=== PATIENT | female | born 1970 | race African-American/Black ===

== ENCOUNTER 2018-04-26 22:12 | Emergency (ER) | payer MEDICAID ==
[~2018-04-26] VITALS: Ht 170.2 cm; Wt 63.5 kg
[~2018-04-26 22:12] MED LIST: ATEN-60; FERR324T11
[2018-04-26 22:59] LABS: Basophils # (auto) 0 uL; Eosinophils # (auto) 0.2 uL; Lymphocytes # (auto) 2.3 uL; Monocytes # (auto) 0.5 uL; Nucleated Red Blood Cells % 0.1 %
[2018-04-26 23:00] LABS: Basophils % (auto) 0.6 % (0.0-2.0); Eosinophils % (auto) 2.7 % (0.0-7.0); Hemoglobin 10.8 g/dL (12.2-16.2); Mean Corpuscular Hemoglobin 24.1 pg (28.0-32.0); Mean Corpuscular Hgb Conc. 31.7 g/dL (32.0-36.0); Mean Corpuscular Volume 76.2 fL (80.0-100.0); Monocytes % (auto) 5.4 % (0.0-12.0); Neutrophils # (auto) 5.3 uL; Neutrophils % (auto) 63.3 % (37.0-80.0); Red Blood Cells 4.47 10^6/uL (4.0-5.20); White Blood Cell 8.3 10^3/uL (4.4-10.8)
[2018-04-26 23:17] LABS: Alanine Aminotransferase 14 U/L (13-56); Albumin 4.2 g/dL (3.4-5.0); Anion Gap 11 (5-15); Aspartate Aminotransferase 10 U/L (15-37); BUN/Creatinine Ratio 14.3; Blood Urea Nitrogen 11 mg/dL (7-18); Calcium 8.3 mg/dL (8.5-10.1); Carbon Dioxide 21 mmol/L (21-32); Chloride 106 mmol/L (98-107); GFR African American > 60 mL/min; GFR Non-African American > 60 mL/min; Glucose 88 mg/dL (74-106); Potassium 3.3 mmol/L (3.5-5.1); Sodium 138 mmol/L (136-145)
[2018-04-26 23:21] LABS: Alkaline Phosphatase 63 U/L (45-117); Bilirubin, Total 0.8 mg/dL (0.2-1.0); Total Protein 8.8 g/dL (6.4-8.2)
[2018-04-27] LABS: Platelet Count (auto) 203 10^3/uL (140-450)
[2018-04-27 07:26] VITALS: BP 114/70
[2018-04-27] MEDS ORDERED: POTASSIUM EFFERVESENT TAB 25 MEQ PO ONE (07:30)
== END 2018-04-27 08:09 | disposition home or self-care (01) ==
LOC: ER 22:12
DX: K56.7 Ileus, unspecified (principal); R07.9 Chest pain, unspecified; I10 Essential (primary) hypertension; Z79.899 Other long term (current) drug therapy; Z98.51 Tubal ligation status; Z88.0 Allergy status to penicillin
CPT/HCPCS: 36415; 71046; 74018; 74176; 80053; 84484; 85025; 93005

== ENCOUNTER 2021-05-19 12:42 | Emergency (ER) | payer MEDICARE, MEDICAID ==
[~2021-05-19] VITALS: Ht 170.2 cm; Wt 69.9 kg
[2021-05-19] MEDS ORDERED: cloNIDine HCL 0.1 MG TAB PO ONE (13:30)
[2021-05-19] MEDS ORDERED: FLUORESCEIN SOD OPTH TEST STRIP ONE (15:11)
[2021-05-19] MEDS ORDERED: TOBR0.3S OP (15:29)
[2021-05-19 15:44] VITALS: BP 177/103
== END 2021-05-19 15:59 | disposition home or self-care (01) ==
LOC: ER 12:42
DX: S05.01XA Injury of conjunctiva and corneal abrasion without foreign body, right eye, initial encounter (principal); I10 Essential (primary) hypertension; H26.9 Unspecified cataract; Z88.0 Allergy status to penicillin; Z98.51 Tubal ligation status; X58.XXXA Exposure to other specified factors, initial encounter; Y93.89 Activity, other specified; Y92.89 Other specified places as the place of occurrence of the external cause; Y99.8 Other external cause status
CPT/HCPCS: 70450; 82962